=== PATIENT | male | born 1980 | race Caucasian/White ===

== ENCOUNTER 2016-07-08 14:06 | Emergency (ER) | payer OTHER ==
[~2016-07-08 14:06] MED LIST: MOBIC15 MG PO; MULTI-DAY VITA1 EACH PO; NORCO 7.5-3251 EACH PO; PROTONIX 40 MG40 M1 PO; SYNTHROID75 MCG PO; ZYRTEC10 MG PO
== END 2016-07-08 14:50 | disposition home or self-care (01) ==
LOC: ER1 14:06
DX: S46.911A Strain of unspecified muscle, fascia and tendon at shoulder and upper arm level, right arm, initial encounter (principal); K21.9 Gastro-esophageal reflux disease without esophagitis; Z79.899 Other long term (current) drug therapy; X50.0XXA Overexertion from strenuous movement or load, initial encounter; Y99.0 Civilian activity done for income or pay
CPT/HCPCS: 73030; 99283

== ENCOUNTER → 2021-07-14 | Outpatient (CLI) | payer BC ==
[2021-07-14 09:20] LABS: HEMOGLOBIN 16.1 gm/dl (14.0-17.5); RED BLOOD COUNT 5.28 M/UL (4.20-5.50); WHITE BLOOD COUNT 7.9 K/UL (4.5-11.0)
[2021-07-14 09:45] LABS: BUN/CREATININE RATIO 14 (0-10)
[2021-07-15 22:07] LABS: TESTOSTERONE, SERUM 146 ng/dL (264-916)
== END ==
LOC: LAB 07:00
PROVIDERS: Nurse Practitioner Family
DX: I10 Essential (primary) hypertension (principal); R53.83 Other fatigue; E78.2 Mixed hyperlipidemia
CPT/HCPCS: 36415; 80053; 80061; 82607; 82652; 83036; 84402; 84403; 84439; 84443; 85025

== ENCOUNTER → 2021-10-20 | Outpatient (CLI) | payer BC | LOC: RAD 10:44 | DX: R05.9 Cough, unspecified (principal) | CPT/HCPCS: 71046 ==